=== PATIENT | female | born 1975 | race Caucasian/White ===

== ENCOUNTER 2017-04-29 18:29 | Emergency (ER) | payer OTHER ==
[~2017-04-29] VITALS: Ht 172.7 cm; Wt 67.1 kg
[2017-04-29] MEDS ORDERED: METOPROLOL SUC200 MG PO (21:35)
[2017-04-29] MEDS ORDERED: HYDROCHLOROTHIA25 MG PO (21:36)
[2017-04-29] MEDS ORDERED: NORCO 5-325 TA1 EACH PO (22:34)
== END 2017-04-29 22:52 | disposition home or self-care (01) ==
LOC: ED 18:29
DX: M10.071 Idiopathic gout, right ankle and foot (principal); I10 Essential (primary) hypertension; Z79.899 Other long term (current) drug therapy
CPT/HCPCS: 99283